=== PATIENT | male | born 1940 | race Caucasian/White ===

== ENCOUNTER 2016-09-18 10:18 | Outpatient (CLI) | payer MEDICARE ==
[2015-10-04 14:47] VITALS: BP 95/55
== END 2016-09-18 10:20 ==
LOC: CARD 10:18
PROVIDERS: ATTEND Internal Medicine Cardiovascular Disease
DX: I35.0 Nonrheumatic aortic (valve) stenosis (principal)
CPT/HCPCS: G0463

== ENCOUNTER 2016-12-18 13:07 | Outpatient (CLI) | payer MEDICARE ==
[2015-10-04 14:47] VITALS: BP 95/55
== END 2016-12-18 13:10 ==
LOC: CARD 13:07
PROVIDERS: ATTEND Internal Medicine Cardiovascular Disease
DX: I35.0 Nonrheumatic aortic (valve) stenosis (principal); I48.91 Unspecified atrial fibrillation
CPT/HCPCS: 93005; G0463

== ENCOUNTER 2017-06-04 13:16 | Outpatient (CLI) | payer MEDICARE ==
[2015-10-04 14:47] VITALS: BP 95/55
== END 2017-06-04 13:17 ==
LOC: CARD 13:16
PROVIDERS: ATTEND Internal Medicine Cardiovascular Disease
DX: I35.0 Nonrheumatic aortic (valve) stenosis (principal); I48.91 Unspecified atrial fibrillation; I25.10 Atherosclerotic heart disease of native coronary artery without angina pectoris; I71.4 Abdominal aortic aneurysm, without rupture; E78.5 Hyperlipidemia, unspecified; I10 Essential (primary) hypertension
CPT/HCPCS: G0463

== ENCOUNTER 2017-10-08 14:22 | Outpatient (CLI) | payer MEDICARE ==
[2015-10-04 14:47] VITALS: BP 95/55
== END 2017-10-08 14:23 ==
LOC: CARD 14:22
PROVIDERS: ATTEND Internal Medicine Cardiovascular Disease
DX: I35.0 Nonrheumatic aortic (valve) stenosis (principal); Z86.79 Personal history of other diseases of the circulatory system; I25.10 Atherosclerotic heart disease of native coronary artery without angina pectoris; E78.5 Hyperlipidemia, unspecified; I10 Essential (primary) hypertension
CPT/HCPCS: G0463

== ENCOUNTER 2018-02-11 13:54 | Outpatient (CLI) | payer MEDICARE ==
[2015-10-04 14:47] VITALS: BP 95/55
== END 2018-02-11 13:55 ==
LOC: CARD 13:54
PROVIDERS: ATTEND Internal Medicine Cardiovascular Disease
DX: I35.0 Nonrheumatic aortic (valve) stenosis (principal); I48.91 Unspecified atrial fibrillation; I25.10 Atherosclerotic heart disease of native coronary artery without angina pectoris; I10 Essential (primary) hypertension; E78.5 Hyperlipidemia, unspecified
CPT/HCPCS: G0463

== ENCOUNTER 2018-05-13 10:43 | Outpatient (CLI) | payer MEDICARE ==
[2015-10-04 14:47] VITALS: BP 95/55
== END 2018-05-13 10:44 ==
LOC: CARD 10:43
PROVIDERS: ATTEND Internal Medicine Cardiovascular Disease
DX: I35.0 Nonrheumatic aortic (valve) stenosis (principal); Z86.79 Personal history of other diseases of the circulatory system; I25.10 Atherosclerotic heart disease of native coronary artery without angina pectoris; I10 Essential (primary) hypertension; E78.5 Hyperlipidemia, unspecified; L97.929 Non-pressure chronic ulcer of unspecified part of left lower leg with unspecified severity
CPT/HCPCS: G0463

== ENCOUNTER 2019-01-06 17:58 | Emergency (ER) | payer MEDICARE ==
--- NOTE | 2019-01-06 18:20 | ED Physician Documentation ---
Low Back Pain - HISTORIAN Historian: patient, spouse () - [facility] Chief Complaint: Low Back Pain/ Injury Additional Information: Patient is a 78-year-old male that presents to the ER with c/o low back pain. He states on Saturday (3 days ago) he was lifting a case of water and pulled his back- he has been trying to care for it at home but he really appears to be uncomfortable- pain worsens with movement- pt rates pain a 5/10 but is tearful. History: back pain Onset: days ago Duration: continues in ED Recent Injury: Yes (lifting a case of water) Context: bending Severity: moderate Quality: burning Front/Back of Body, Lg (Color): 1 - low back pain Associated Symptoms: difficulty walking. denies: incontinence Worsened By:: supine, movement to RT flexion, movement to LT flexion Relieved By: remaining still - ROS CONST: no problems CVS/RESP: none EYES/ENT: none MS/SKIN/LYMPH: back pain Neuro/Psych: none - PAST HX Past History: back pain (chronic low back pain) Other History: aortic aneurysm (Repaired), cardiac disease, CAD (STEMI 2008), hypertension, peptic ulcer disease, other (Aortic Stenosis, A-Fib, HLD, Hiatal Hernia, Hypothyroid) Surgeries/Procedures: cholecystectomy, other (Mastoid, cardiac cath, AAA repair (leak)) Immunizations: UTD Allergies/Adverse Reactions: Allergies Allergy/AdvReac Type Severity Reaction Status Date / Time No Known Allergies Allergy Verified 01/06/19 18:37 Home Medications: Ambulatory Orders Medication Instructions Recorded Atorvastatin Calcium 80 mg PO D 10/04/15 Levothyroxine Sodium [Synthroid] 100 mcg PO D 10/04/15 Nitroglycerin [Nitrostat] 0.4 mg SL PRN PRN 10/04/15 Omeprazole [Prilosec] 40 mg PO D 10/04/15 Warfarin Sodium [Coumadin] 5 mg PO QDAY 10/04/15 Furosemide [Lasix] 20 mg PO DAILY 01/06/19 Lisinopril 20 mg PO DAILY 01/06/19 - SOCIAL HX Smoking History: non-smoker Alcohol Use: none Drug Use: none - FAMILY HX Family History: none - VITAL SIGNS Vital Signs: Vital Signs Temp Pulse Resp BP Pulse Ox 97.9 F 60 20 145/86 96 01/06/19 18:03 01/06/19 18:03 01/06/19 18:03 01/06/19 18:03 01/06/19 18:03 - REVIEWED ASSESSMENTS Nursing Assessment Reviewed: Yes Vitals Reviewed: Yes Progress - Progress Progress: 19:00 Patient feeling much better after medications- he states he has appointment with PCP tomorrow. ED Results Lab/Radiology - Radiology Radiology Impressions: EXAMINATION: L SPINE 2 OR 3 VIEWS HISTORY: chronic lower back pain. worse after lifting a package of bottled water from shelf. hx of aortic stent. (Hx) COMPARISON: None FINDINGS: An aortic endovascular stent graft is present. Cholecystectomy clips are noted. The vertebral bodies are normally aligned. No acute fracture or compression deformity is identified. The intervertebral disc spaces are maintained. IMPRESSION: No acute fracture or subluxation identified. Electronically signed on January 06, 2019 6:50:11 PM CDT by: Ryan Blue - Orders Orders: ED Orders Category Date Time Status LUMBAR SPINE XR 2 OR 3 VIEWS [L SPINE 2 OR 3 VIEWS] [ Exams 01/06/19 Completed RAD] Stat Cyclobenzaprine HCl [Flexeril] Med 01/06/19 18:25 Discontinued 5 mg PO NOW ONE Morphine Sulfate Med 01/06/19 18:16 Discontinued 2 mg IM NOW ONE diazePAM [Valium] Med 01/06/19 18:16 Discontinued 5 mg IM NOW ONE Low Back Pain/Injury - Physical Exam General Appearance: alert, moderate distress EENT: eye inspection normal, ENT inspection normal, pharynx normal, ERLIN Neck: non-tender, painless ROM Resp/CVS: chest non-tender, breath sounds nml, heart sounds nml, no resp. distress, lungs clear, tachycardia Back: muscle spasm Straight Leg Raising: Positive Left, Positive Right Neuro/Psych: oriented x3, motor nml, sensation nml, mood/affect nml Skin: warm/dry, normal color Extremities: non-tender Discharge Clincal Impression: Lower back injury Referrals: Nereida Plaza FNP [Primary Care Provider] - 2 Days Additional Instructions: Take Baclofen 10mg by mouth twice a day for 7 days for muscle spasms Tramadol 50mg by mouth every 4 hours as needed for pain May take Tylenol for mild discomfort Use heating pad to the back May also use Tyler Ahn Salonpas See PCP tomorrow Condition: Good Disposition: 01 HOME, SELF-CARE Decision to Admit: NO Decision Time: 19:04
[2019-01-06 18:32] VITALS: BP 145/86
[2019-01-06] MEDS: MORPHINE SULFATE 5 MG/ML ML IM ONE (18:35)
[2019-01-06] MEDS: CYCLOBENZAPRINE HCL 10 MG TABLET PO ONE (18:35)
--- NOTE | 2019-01-06 18:58 | Diagnostic Imaging Report ---
DANY [facility] ED [facility] [id number] [facility] [address] [place], [place]. [address] Report Submission Date: January 06, 2019 6:50:11 PM CDT Patient Study Name: GRABIEL VIDALES Date: January 06, 2019 6:33:47 PM CDT Modality Type: DX Gender: M Description: L SPINE 2 OR 3 VIEWS : 38 Institution: [facility] Physician: DANY WYATT ED EXAMINATION: L SPINE 2 OR 3 VIEWS HISTORY: chronic lower back pain. worse after lifting a package of bottled water from shelf. hx of aortic stent. (Hx) COMPARISON: None FINDINGS: An aortic endovascular stent graft is present. Cholecystectomy clips are noted. The vertebral bodies are normally aligned. No acute fracture or compression deformity is identified. The intervertebral disc spaces are maintained. IMPRESSION: No acute fracture or subluxation identified. Electronically signed on January 06, 2019 6:50:11 PM CDT by: Ryan KNUTSON
== END 2019-01-06 19:09 | disposition home or self-care (01) ==
LOC: ED 17:58
DX: S39.92XA Unspecified injury of lower back, initial encounter (principal); X50.0XXA Overexertion from strenuous movement or load, initial encounter; Y93.89 Activity, other specified; Y92.9 Unspecified place or not applicable
CPT/HCPCS: 72100; 96372; 99283; 99284

== ENCOUNTER 2019-06-09 13:01 | Outpatient (CLI) | payer MEDICARE | END 2019-06-09 13:30 | LOC: NEPHRO 13:01 | PROVIDERS: ATTEND Internal Medicine Nephrology | DX: N18.9 Chronic kidney disease, unspecified (principal) | CPT/HCPCS: G0463 ==

== ENCOUNTER 2019-07-07 14:32 | Outpatient (CLI) | payer MEDICARE | END 2019-07-07 15:00 | LOC: NEPHRO 14:32 | PROVIDERS: ATTEND Internal Medicine Nephrology | DX: N18.9 Chronic kidney disease, unspecified (principal) | CPT/HCPCS: 99213; G0463 ==